=== PATIENT | male | born 1965 | race Caucasian/White ===

== ENCOUNTER 2017-10-14 02:03 | Observation (INO) | payer OTHER ==
[~2017-10-14] VITALS: Ht 177.8 cm; Wt 72.7 kg
[~2017-10-14 02:03] MED LIST: ATARAX10 MG PO; ATORVASTATIN CA10 MG PO; CYANOCOBALAM1000 MCG PO; DOCUSATE SODIU100 MG PO; EFFEXOR XR150 MG PO; EFFEXOR37.5 MG PO; FOLIC ACID1 MG PO; HYDROXYZINE HCL25 MG PO; LIBRIUM25 MG PO; MOTRIN400 MG PO; NAMENDA5 MG PO; NICOTINE PATCH1 EAC2 TD; OXYCODONE HCL5 MG PO; PANTOPRAZOLE SO40 MG PO; PAROXETINE HCL20 MG PO; PAXIL20 MG PO; PAXIL30 MG PO; PROMETHAZINE HC25 M1 PO; SENNA-TIME S T1 EACH PO; THERAGRAN1 TABLET PO; THIAMINE HCL100 MG PO; TYLENOL WITH C1 EACH PO; VENLAFAXINE HC150 M1; VITAMIN B-1100 MG PO; WELLBUTRIN SR150 MG PO; ZOFRAN ODT4 MG PO; ZOLPIDEM TARTRAT5 MG PO
[2017-10-14 03:56] LABS: HEMATOCRIT 48.7 % (38.0-50.0); HEMOGLOBIN 16.5 G/DL (12.5-16.6); MCH 30.2 PG (29.0-34.0); MCHC 33.9 G/DL (30.0-36.0); MCV 89.2 FL (86-99); PLATELET COUNT 259 K/uL (156-360); RBC DIS.WIDTH-CV 12.9 % (11.8-14.6); RED BLOOD COUNT 5.46 M/uL (4.00-5.50); WHITE BLOOD COUNT 21.6 K/uL (4.1-10.2)
[2017-10-14 04:08] LABS: ALBUMIN 4.8 g/dL (3.2-4.8); CHLORIDE 105 mEq/L (99-109); POTASSIUM 3.8 mEq/L (3.7-5.4); SODIUM 144 mEq/L (136-147)
[2017-10-14 04:09] LABS: MAGNESIUM 2.2 mg/dL (1.3-2.7)
[2017-10-14 04:10] LABS: GLUCOSE 86 mg/dL (70-99)
[2017-10-14 04:11] LABS: TOTAL PROTEIN 7.9 g/dL (6.4-8.3)
[2017-10-14 04:12] LABS: TOTAL BILIRUBIN 0.2 mg/dL (0.0-1.0)
[2017-10-14 04:13] LABS: SERUM ETHYL ALCOHOL 133 mg/dL
[2017-10-14 04:14] LABS: ALKALINE PHOSPHATASE 81 IU/L (3-129); CREATININE 0.7 mg/dL (0.6-1.3); GFR ESTIMATE (CALCULATED) > 59 mL/min/ (58.99-99999)
[2017-10-14 04:15] LABS: UREA NITROGEN (BUN) 18 mg/dL (9-23)
[2017-10-14 04:16] LABS: AST (GOT) 37 IU/L (2-34)
[2017-10-14 04:17] LABS: ALT (GPT) 41 IU/L (3-49); LIPASE 7 U/L (1.0-51.0)
[2017-10-14 04:58] LABS: APPEARANCE CLEAR ((CLEAR)); BILIRUBIN NEGATIVE; BLOOD SMALL; COLOR YELLOW ((YELLOW)); GLUCOSE (STRIP) NEGATIVE; KETONES 20; LEUKOCYTES NEGATIVE; NITRITE NEGATIVE; PROTEIN (STRIP) NEGATIVE; SPECIFIC GRAVITY 1.012 (1.000-1.030); UROBILINOGEN 0.2 MG/DL (0.2-1.0)
[2017-10-14 05:08] LABS: BACTERIA NONE SEEN /HPF; EPITHELIAL CELLS NONE SEEN /HPF; HYALINE CASTS 0-5 /LPF; MUCUS NONE SEEN /LPF; RED BLOOD CELLS 0-5 /HPF (0-5); UCUL ADDED? NO; WHITE BLOOD CELLS 0-5 /HPF (0-5)
[2017-10-14 07:32] LABS: PHENCYCLIDINE NEGATIVE (25 ng/mL); THC CANNABINOIDS NEGATIVE (50 ng/mL)
[2017-10-14 07:33] LABS: AMPHETAMINE NEGATIVE (500 ng/mL); BARBITURATES NEGATIVE (200 ng/mL); BENZODIAZEPINES NEGATIVE (150 ng/mL); BUPRENORPHINE NEGATIVE (10 ng/mL); COCAINE NEGATIVE (150 ng/mL); METHADONE NEGATIVE (200 ng/mL); METHAMPHETAMINE NEGATIVE (500 ng/mL); OPIATES (MORPHINE) NEGATIVE (100 ng/mL); OXYCODONE NEGATIVE (100 ng/mL); PROPOXYPHENE NEGATIVE (300 ng/mL); TRICYCLIC ANTIDEPRESSANTS NEGATIVE (300 ng/mL)
[2017-10-14 08:21] LABS: MAGNESIUM 2.4 mg/dL (1.3-2.7)
[2017-10-14] MEDS ORDERED: NALTREXONE HCL50 MG PO (12:33)
[2017-10-14] MEDS ORDERED: DEPAKOTE250 MG PO (12:33)
[2017-10-14] MEDS ORDERED: ADVIL,NUPRIN,M200 MG PO (12:36)
[2017-10-14 16:00] VITALS: BP 99/56
[2017-10-14 19:23] VITALS: BP 102/60
[2017-10-14 23:50] VITALS: BP 97/56
[2017-10-15 03:30] VITALS: BP 99/65
[2017-10-15 06:49] LABS: CHLORIDE 107 MEQ/L (99-109); CREATININE 0.9 MG/DL (0.6-1.3); GFR ESTIMATE (CALCULATED) > 59 mL/min/ (58.99-99999); GLUCOSE 91 mg/dL (70-99); SODIUM 143 MEQ/L (136-147); UREA NITROGEN (BUN) 12 mg/dL (9-23)
[2017-10-15 07:46] VITALS: BP 104/68
[2017-10-15 08:56] LABS: BASOPHIL (%) 0.1 % (0-1); EOSINOPHIL (%) 0.5 % (0-5); HEMATOCRIT 35.4 % (38.0-50.0); IMMATURE GRANULOCYTE (%) 0.2 % (0.0-0.7); LYMPHOCYTE (%) 15.7 % (15-42); LYMPHOCYTE COUNT 1.3 K/uL (1.0-2.8); MCH 30.1 PG (29.0-34.0); MCHC 34.2 G/DL (30.0-36.0); MCV 88.1 FL (86-99); MONOCYTE COUNT 0.8 K/uL (0-0.8); NEUTROPHIL (%) 74.5 % (45-76); NEUTROPHIL COUNT 6.2 K/uL (1.8-6.4); RBC DIS.WIDTH-SD 42.1 % (39-53); WHITE BLOOD COUNT 8.3 K/uL (4.1-10.2)
[2017-10-15 09:06] LABS: HEMOGLOBIN 12.1 G/DL (12.5-16.6); RED BLOOD COUNT 4.02 M/uL (4.00-5.50)
[2017-10-15 09:29] LABS: PLATELET CLUMPS PRESENT - PLATELET COUNT APPEARS ADQ.; PLATELET COUNT UNABLE TO REPORT K/uL (156-360)
[2017-10-15 11:07] VITALS: BP 106/62
== END 2017-10-15 14:26 | disposition home or self-care (01) ==
LOC: EME 02:03 → 5WEST 07:48 → EDOF 07:48 → ENRESERV 08:05 → 5WEST 15:30
PROVIDERS: Emergency Medicine; Internal Medicine; Nurse Practitioner Family; Physician Assistant
DX: E87.2 Acidosis (principal); E86.0 Dehydration; F10.229 Alcohol dependence with intoxication, unspecified; Y90.6 Blood alcohol level of 120-199 mg/100 ml; T68.XXXA Hypothermia, initial encounter; X31.XXXA Exposure to excessive natural cold, initial encounter; R10.817 Generalized abdominal tenderness; K20.9 Esophagitis, unspecified; D72.829 Elevated white blood cell count, unspecified; K74.60 Unspecified cirrhosis of liver; M19.90 Unspecified osteoarthritis, unspecified site; F17.200 Nicotine dependence, unspecified, uncomplicated; Z59.0 Homelessness
CPT/HCPCS: 71045; 74177; 80048; 80053; 81003; 82550; 83605; 83690; 83735; 85025; 85027; 87040; 87502; 99281; 99285; G0378; G0480; J0696; J2060; J2405; J2765; J3411; J3475; J3480; J7030; J7120

== ENCOUNTER 2017-10-15 19:02 | Emergency (ER) | payer OTHER ==
[~2017-10-15] VITALS: Ht 177.8 cm; Wt 76.1 kg
[~2017-10-15 19:02] MED LIST changes: +ADVIL,NUPRIN,M200 MG PO; +DEPAKOTE250 MG PO; +NALTREXONE HCL50 MG PO
[2017-10-16 08:25] VITALS: BP 121/85
== END 2017-10-16 08:49 | disposition home or self-care (01) ==
LOC: EME 19:02
DX: F10.129 Alcohol abuse with intoxication, unspecified (principal); F17.200 Nicotine dependence, unspecified, uncomplicated
CPT/HCPCS: 99281; 99283

== ENCOUNTER 2017-10-16 16:17 | Emergency (ER) | payer OTHER ==
[~2017-10-16] VITALS: Ht 172.7 cm; Wt 72.2 kg
[2017-10-16 17:39] LABS: HEMATOCRIT 40.7 % (38.0-50.0); HEMOGLOBIN 13.7 G/DL (12.5-16.6); MCH 29.7 PG (29.0-34.0); MCHC 33.7 G/DL (30.0-36.0); MCV 88.3 FL (86-99); RBC DIS.WIDTH-CV 12.9 % (11.8-14.6); RBC DIS.WIDTH-SD 41.4 % (39-53); RED BLOOD COUNT 4.61 M/uL (4.00-5.50); WHITE BLOOD COUNT 9.7 K/uL (4.1-10.2)
[2017-10-16 17:40] LABS: PLATELET COUNT 175 K/uL (156-360)
[2017-10-16 17:46] LABS: CHLORIDE 107 mEq/L (99-109); POTASSIUM 4.2 mEq/L (3.7-5.4); SODIUM 145 mEq/L (136-147)
[2017-10-16 17:48] LABS: GLUCOSE 87 mg/dL (70-99)
[2017-10-16 17:51] LABS: SERUM ETHYL ALCOHOL 199 mg/dL
[2017-10-16 17:52] LABS: CREATININE 0.8 mg/dL (0.6-1.3); GFR ESTIMATE (CALCULATED) > 59 mL/min/ (58.99-99999)
[2017-10-16 17:53] LABS: UREA NITROGEN (BUN) 10 mg/dL (9-23)
[2017-10-16 17:55] LABS: ACETAMINOPHEN (TYLENOL) < 10 mcg/mL (10-30); SALICYLATE < 5.0 MG/DL (15-30)
[2017-10-16 17:56] LABS: CREATINE KINASE 235 IU/L (1-294)
[2017-10-16 22:00] VITALS: BP 106/64
== END 2017-10-16 22:34 | disposition home or self-care (01) ==
LOC: EME 16:17
PROVIDERS: Physician Assistant
DX: F10.229 Alcohol dependence with intoxication, unspecified (principal); Y90.6 Blood alcohol level of 120-199 mg/100 ml; F32.9 Major depressive disorder, single episode, unspecified; R45.851 Suicidal ideations; F43.21 Adjustment disorder with depressed mood; K74.60 Unspecified cirrhosis of liver; F17.200 Nicotine dependence, unspecified, uncomplicated
CPT/HCPCS: 80048; 81003; 82550; 85027; 90839; 99281; 99285; G0480

== ENCOUNTER 2017-10-31 09:05 | Emergency (ER) | payer OTHER ==
[~2017-10-31] VITALS: Ht 175.3 cm; Wt 70.8 kg
[2017-10-31 09:46] LABS: HEMATOCRIT 41.3 % (38.0-50.0); HEMOGLOBIN 14.2 G/DL (12.5-16.6); MCH 30.5 PG (29.0-34.0); MCHC 34.4 G/DL (30.0-36.0); MCV 88.8 FL (86-99); RBC DIS.WIDTH-CV 13.9 % (11.8-14.6); RED BLOOD COUNT 4.65 M/uL (4.00-5.50); WHITE BLOOD COUNT 6.5 K/uL (4.1-10.2)
[2017-10-31 09:47] LABS: PLATELET COUNT 237 K/uL (156-360)
[2017-10-31 09:54] LABS: ALBUMIN 4.1 g/dL (3.2-4.8)
[2017-10-31 09:55] LABS: CHLORIDE 106 mEq/L (99-109); SODIUM 142 mEq/L (136-147)
[2017-10-31 09:57] LABS: GLUCOSE 73 mg/dL (70-99); TOTAL PROTEIN 6.7 g/dL (6.4-8.3)
[2017-10-31 09:59] LABS: TOTAL BILIRUBIN 0.3 mg/dL (0.0-1.0)
[2017-10-31 10:00] LABS: ALKALINE PHOSPHATASE 60 IU/L (3-129)
[2017-10-31 10:01] LABS: CREATININE 0.8 mg/dL (0.6-1.3); GFR ESTIMATE (CALCULATED) > 59 mL/min/ (58.99-99999)
[2017-10-31 10:02] LABS: AST (GOT) 23 IU/L (2-34); UREA NITROGEN (BUN) 15 mg/dL (9-23)
[2017-10-31 10:04] LABS: ALT (GPT) 19 IU/L (3-49)
[2017-10-31 11:52] LABS: SERUM ETHYL ALCOHOL 51 mg/dL
[2017-10-31 12:01] LABS: APPEARANCE CLEAR ((CLEAR)); BILIRUBIN NEGATIVE; BLOOD NEGATIVE; COLOR YELLOW ((YELLOW)); GLUCOSE (STRIP) NEGATIVE; KETONES 20; LEUKOCYTES NEGATIVE; NITRITE NEGATIVE; PROTEIN (STRIP) NEGATIVE; SPECIFIC GRAVITY 1.018 (1.000-1.030); UCUL ADDED? NO; UROBILINOGEN 0.2 MG/DL (0.2-1.0)
[2017-10-31 13:08] VITALS: BP 122/84
== END 2017-10-31 13:09 | disposition home or self-care (01) ==
LOC: EME 09:05
PROVIDERS: Emergency Medicine
DX: F10.20 Alcohol dependence, uncomplicated (principal); F43.21 Adjustment disorder with depressed mood; M19.91 Primary osteoarthritis, unspecified site; F17.200 Nicotine dependence, unspecified, uncomplicated; Z87.19 Personal history of other diseases of the digestive system; Z86.59 Personal history of other mental and behavioral disorders
CPT/HCPCS: 80053; 81003; 85027; 90839; 99281; 99285; G0480

== ENCOUNTER 2018-03-11 16:58 | Emergency (ER) | payer OTHER ==
[~2018-03-11] VITALS: Ht 175.3 cm; Wt 68.0 kg
[2018-03-11 18:03] VITALS: BP 118/68
== END 2018-03-11 18:05 ==
LOC: EME 16:58
DX: F10.239 Alcohol dependence with withdrawal, unspecified (principal); R11.2 Nausea with vomiting, unspecified; F32.9 Major depressive disorder, single episode, unspecified; F17.200 Nicotine dependence, unspecified, uncomplicated
CPT/HCPCS: 99281; 99284